=== PATIENT | female | born 1980 | race Caucasian/White ===

== ENCOUNTER 2019-02-12 23:28 | Emergency (ER) | payer OTHER ==
[~2019-02-12] VITALS: Ht 154.9 cm; Wt 64.9 kg
[2019-02-12 23:43] VITALS: Ht 154.9 cm; Wt 64.9 kg
[2019-02-13 02:52] VITALS: BP 142/68
== END 2019-02-13 02:52 | disposition home or self-care (01) ==
LOC: ED 23:28
DX: S62.614A Displaced fracture of proximal phalanx of right ring finger, initial encounter for closed fracture (principal); S09.8XXA Other specified injuries of head, initial encounter; M19.90 Unspecified osteoarthritis, unspecified site; I10 Essential (primary) hypertension; Z88.6 Allergy status to analgesic agent; V48.5XXA Car driver injured in noncollision transport accident in traffic accident, initial encounter; Y93.I9 Activity, other involving external motion; Y92.488 Other paved roadways as the place of occurrence of the external cause; Y99.8 Other external cause status
CPT/HCPCS: A4570; J1885; J2001; Q0092